=== PATIENT | male | born 1995 | race Caucasian/White ===

== ENCOUNTER 2016-06-14 16:07 | Emergency (ER) | payer OTHER ==
--- NOTE | 2016-06-14 16:47 | EDM.PDOC ---
[id number] POSSIBLE STREP THROAT Time Seen by Provider: 06/14/16 16:29 Source: Reports: Patient History Limitations: Reports: No limitations - History of Present Illness INITIAL COMMENTS - FREE TEXT/NARRATIVE: HISTORY AND PHYSICAL: History of present illness: [22-year-old male with no significant past medical history except idiopathic urticaria now complaining of mild hives typical for him. Spontaneous onset. Patient feels there is an association with strep throat and decides. When he first got the hives he had no throat symptoms but now he feels like his throat might be starting to hurt a little bit. No allergen exposures. No known allergies. Patient feels well otherwise. No voice changes stridor globus or wheezing. Review of systems: As per history of present illness and below otherwise all systems reviewed and negative. Past medical history: As per history of present illness and as reviewed below otherwise noncontributory. Surgical history: As per history of present illness and as reviewed below otherwise noncontributory. Social history: No reported history of drug or alcohol abuse. Family history: As per history of present illness and as reviewed below otherwise noncontributory. Physical exam: Well-appearing no acute distress stridor shortness of air, wheezing or tachypnea. Normal respiratory rate and pulse ox unremarkable. Well- appearing oropharynx. No anterior cervical adenopathy. Scattered mild urticaria. HEENT: Atraumatic, normocephalic, pupils reactive, negative for conjunctival pallor or scleral icterus, mucous membranes moist, throat clear, neck supple, nontender, trachea midline. Lungs: Clear to auscultation, breath sounds equal bilaterally, chest nontender. Heart: S1S2, regular, negative for clicks, rubs, or JVD. Abdomen: Soft, nondistended, nontender. Negative for masses or hepatosplenomegaly. Negative for costovertebral tenderness. Pelvis: Stable nontender. Genitourinary: Deferred. Rectal: Deferred. Extremities: Atraumatic, negative for cords or calf pain. Neurovascular unremarkable. Neuro: Awake, alert, oriented. Motor and sensory unremarkable throughout. Exam nonfocal. Diagnostics: [] Therapeutics: [] Impression: [] Plan: [Signs and symptoms consistent with idiopathic urticaria exacerbation. Discussed with patient we'll cover for less likely possibility of allergic urticaria. Signs of airway involvement. Patient stable. No further workup or treatment indicated. Patient agrees outpatient followup. Strict return precautions given Definitive disposition and diagnosis as appropriate pending reevaluation and review of above. - Related Data Allergies Allergy/AdvReac Type Severity Reaction Status Date / Time No Known Allergies Allergy Verified 06/14/16 16:23 Home Meds: Ambulatory Orders Medication Instructions Recorded Confirmed Prednisone [IMW: predniSONE] 40 mg PO WITHBREAKFAST #5 tab 06/14/16 Past Medical History - Past Health History Medical/Surgical History: Denies Medical/Surgical History Social & Family History - Family History Family Medical History: Noncontributory - Tobacco Use Smoking Status *Q: Current Every Day Smoker Years of Tobacco use: 6 Packs/Tins Daily: 0.5 - Recreational Drug Use Recreational Drug Use: No ED ROS GENERAL - Review of Systems Review Of Systems: See Below (Per history of present illness) ED EXAM, SKIN/RASH Exam: See Below (Per history of present illness) Course - Vital Signs Text/Narrative:: Signs and symptoms consistent with idiopathic urticaria with no respiratory involvement or apparent allergen triggers. Patient is well-appearing with unremarkable vital signs. There appears to be an anxiety contributory component to patients symptomatology of very mild sore throat. His throat is normal- appearing however he is concerned with possible evolving strep. Rapid strep pending. If negative will prescribe prednisone. Patient aware to use Benadryl and Pepcid as needed and followup with PCP. He severed aware to return immediately for evidence of airway involvement, new ,severe, or worsening symptoms Last Recorded V/S: Last Vital Signs Temp 37.0 C 06/14/16 16:23 Pulse 78 06/14/16 18:01 Resp 16 06/14/16 18:01 BP 122/70 06/14/16 18:01 Pulse Ox 98 06/14/16 18:01 Departure - Departure Time of Disposition: 17:27 Disposition: Home, Self-Care 01 Condition: good Clinical Impression: Idiopathic urticaria, Urticaria Prescriptions: Prednisone [IMW: predniSONE] 40 mg PO WITHBREAKFAST #5 tab Instructions: Hives, [id number] Referrals: Pilar Pereira [facility] [Primary Care Provider] - Forms: ED Department Discharge Additional Instructions: Your hives appear to be an episode of your chronic intermittent idiopathic urticaria. This means hives that come and go for no apparent reason. Finish prednisone as prescribed and take Benadryl and Pepcid as discussed needed. These are [id number] medications and they're both antihistamines. Follow up with your Dr. in one to 2 days and return immediately for any signs of airway involvement or severe symptoms.
[2016-06-14 18:10] VITALS: BP 122/70
== END 2016-06-14 18:01 | disposition home or self-care (01) ==
LOC: MW.ED 16:07
DX: L50.1 Idiopathic urticaria (principal); J02.9 Acute pharyngitis, unspecified; F17.210 Nicotine dependence, cigarettes, uncomplicated
CPT/HCPCS: 87081; 87880; 99282; 99283

== ENCOUNTER 2020-03-19 02:39 | Emergency (ER) | payer OTHER ==
[2020-03-19] MEDS ORDERED: Diphtheria,Pertussis(Acell),Tetanus Vaccine 0.5 ML Syringe IM ONE ×2 (03:05→04:35)
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
[2020-03-19 03:28] LABS: BLOOD UREA NITROGEN,BUN 9 mg/dL (7.0-18.0); CARBON DIOXIDE,CO2 22.3 mmol/L (21.0-32.0); CHLORIDE,CL 109 mmol/L (98-107); GLUCOSE RANDOM 103 mg/dL (74-106); POTASSIUM,K 4.2 mmol/L (3.5-5.1); SODIUM,NA 146 mmol/L (136-148)
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
[2020-03-19 04:57] VITALS: BP 121/86; PULSE 69
== END 2020-03-19 04:59 ==
LOC: MW.ED 02:39
DX: S70.312A Abrasion, left thigh, initial encounter (principal); S70.212A Abrasion, left hip, initial encounter; Z88.0 Allergy status to penicillin; V03.09XA Pedestrian with other conveyance injured in collision with car, pick-up truck or van in nontraffic accident, initial encounter
CPT/HCPCS: 36415; 73502-26-LT; 73502-LT; 80048; 80305-QW; 81003; 85025; 90471; 99282; 99284-25

== ENCOUNTER 2021-03-26 20:52 | Emergency (ER) | payer SELFPAY ==
[2021-03-26] MEDS ORDERED: Ondansetron 4 MG Tab.DIS PO ONE (21:04)
[2021-03-26] MEDS ORDERED: Ibuprofen 600 MG Tab PO ONE (21:04)
[2021-03-26] MEDS ORDERED: Acetaminophen 500 MG Tab PO ONE (21:04)
--- NOTE | 2021-03-26 21:07 | EDM.PDOC ---
ED HPI GENERAL MEDICAL PROBLEM - General Chief Complaint: General Stated Complaint: VOMITING THROAT HURTS Time Seen by Provider: 03/26/21 20:54 Source of Information: Reports: Patient History Limitations: Reports: No Limitations - History of Present Illness INITIAL COMMENTS - FREE TEXT/NARRATIVE: 26-year-old male no past medical history presents for Covid-like symptoms. Since last night patient notes sore throat, nausea without vomiting, body aches, nonproductive cough, headache worse with coughing. Head Pain Score (Numeric/FACES): 10 - Related Data Home Meds: Home Meds busPIRone [Buspar] 1 dose PO ASDIRECTED 03/19/20 [History] busPIRone [Buspar] 10 mg PO BID 30 Days #60 tablet 03/19/20 [Rx] Past Medical History - Past Health History Medical/Surgical History: Denies Medical/Surgical History Psychiatric History: Reports: Anxiety - Infectious Disease History Infectious Disease History: Reports: None Social & Family History - Family History Family Medical History: No Pertinent Family History ED ROS GENERAL - Review of Systems Review Of Systems: Comprehensive ROS is negative, except as noted in HPI. ED EXAM, GENERAL - Physical Exam Exam: See Below Exam Limited By: No Limitations General Appearance: Alert, WD/WN, No Apparent Distress Ears: Normal External Exam, Normal Canal, Hearing Grossly Normal, Normal TMs Ear Exam: Bilateral Ear: Auricle Normal, Canal Normal, TM normal Throat/Mouth: Normal Voice, No Airway Compromise Head: Atraumatic, Normocephalic Respiratory/Chest: No Respiratory Distress, Lungs Clear, Normal Breath Sounds, No Accessory Muscle Use Extremities: Normal Inspection Neurological: Alert, Normal Cognition, Normal Gait Psychiatric: Normal Affect, Normal Mood Skin Exam: Warm, Dry, Intact, Normal Color Course - Vital Signs Last Recorded V/S: Last Vital Signs Temp 98.9 F 03/26/21 20:57 Pulse 119 H 03/26/21 20:57 Resp 18 03/26/21 20:57 BP 138/75 03/26/21 20:57 Pulse Ox 97 03/26/21 20:57 - Orders/Labs/Meds Labs: Laboratory Tests 03/26/21 Range/Units 21:03 Influenza Type A RNA POSITIVE H (NEGATIVE) Influenza Type B RNA NEGATIVE (NEGATIVE) SARS-CoV-2 RNA (MARTIR) NEGATIVE (NEGATIVE) Meds: Medications Discontinued Medications Generic Name Dose Route Start Last Admin Trade Name Cedric PRN Reason Stop Dose Admin Acetaminophen 1,000 mg 03/26/21 21:04 03/26/21 21:23 Acetaminophen 500 Mg Tab PO 03/26/21 21:05 1,000 mg ONETIME ONE Administration Ibuprofen 600 mg 03/26/21 21:04 03/26/21 21:23 Ibuprofen 600 Mg Tab PO 03/26/21 21:05 600 mg ONETIME ONE Administration Ondansetron HCl 4 mg 03/26/21 21:04 03/26/21 21:23 Ondansetron 4 Mg Tab.Dis PO 03/26/21 21:05 4 mg ONETIME ONE Administration - Re-Assessments/Exams Free Text/Narrative Re-Assessment/Exam: 03/26/21 21:53 Patient is influenza A positive. Will discharge with PMD follow-up Departure - Departure Time of Disposition: :53 Disposition: Home, Self-Care 01 Condition: Good Clinical Impression: Influenza A - Discharge Information Instructions: Influenza, Adult Referrals: Reid Goins MD [Primary Care Provider] - Forms: ED Department Discharge Additional Instructions: Your influenza test is positive. Your medications were sent to [place] pharmacy The following information is given to patients seen in the emergency department who are being discharged to home. This information is to outline your options for follow-up care. We provide all patients seen in our emergency department with a follow-up referral. The need for follow-up, as well as the timing and circumstances, are variable depending upon the specifics of your emergency department visit. If you don't have a primary care physician on staff, we will provide you with a referral. We always advise you to contact your personal physician following an emergency department visit to inform them of the circumstance of the visit and for follow-up with them and/or the need for any referrals to a consulting specialist. The emergency department will also refer you to a specialist when appropriate. This referral assures that you have the opportunity for follow-up care with a specialist. All of these measure are taken in an effort to provide you with optimal care, which includes your follow-up. Under all circumstances we always encourage you to contact your private physician who remains a resource for coordinating your care. When calling for follow-up care, please make the office aware that this follow-up is from your recent emergency room visit. If for any reason you are refused follow-up, please contact the [facility] Emergency Department at and asked to speak to the emergency department charge nurse. Please follow up with your primary care physician. If you do not have a primary care physician, see below: [facility] [address] [place] [address] [id number] [facility] [address] [place] [id number] [facility] [address] [place] [id number] Sepsis Event Note (ED) - Evaluation Sepsis Screening Result: No Definite Risk - Focused Exam Vital Signs: Vital Signs Temp Pulse Resp BP Pulse Ox 03/26/21 20:57 98.9 F 119 H 18 138/75 97
[2021-03-26 21:46] LABS: CORONAVIRUS COVID-19 NAA NEGATIVE (NEGATIVE); INFLUENZA A NAA POSITIVE (NEGATIVE); INFLUENZA B NAA NEGATIVE (NEGATIVE)
[2021-03-26 22:04] VITALS: BP 128/73; PULSE 97
== END 2021-03-26 22:04 | disposition home or self-care (01) ==
LOC: MW.ED 20:52
DX: J10.1 Influenza due to other identified influenza virus with other respiratory manifestations (principal); Z20.822 Contact with and (suspected) exposure to COVID-19
CPT/HCPCS: 0240U; 99283; A9270

== ENCOUNTER 2021-09-27 13:59 | Emergency (ER) | payer SELFPAY ==
[2021-09-27] MEDS ORDERED: Sodium Chloride 0.9% 10 ML Syringe FLUSH PRN (14:02)
[2021-09-27] MEDS ORDERED: Sodium Chloride 0.9% 2.5 ML Syringe FLUSH PRN (14:02)
[2021-09-27] MEDS ORDERED: Sodium Chloride 0.9% 1,000 ML IV ONE (14:02)
[2021-09-27] MEDS ORDERED: Ondansetron 4 MG/2 ML SDV IVPUSH ONE (14:38)
[2021-09-27 15:03] LABS: BLOOD UREA NITROGEN,BUN 13 mg/dL (7.0-18.0); CHLORIDE,CL 105 mmol/L (98-107); GLUCOSE RANDOM 104 mg/dL (74-106); POTASSIUM,K 4.7 mmol/L (3.5-5.1); SODIUM,NA 140 mmol/L (136-148)
[2021-09-27 15:05] LABS: ESTIMATED GFR 106 mL/min (>60)
[2021-09-27 15:35] VITALS: BP 125/72; PULSE 67
== END 2021-09-27 15:34 | disposition home or self-care (01) ==
LOC: MW.ED 13:59
DX: F10.230 Alcohol dependence with withdrawal, uncomplicated (principal); Y90.0 Blood alcohol level of less than 20 mg/100 ml
CPT/HCPCS: 36415; 80053; 80307; 83735; 85025; 93005; 96361; 96374; 99285; J2405; J3490; J7030

== ENCOUNTER 2021-11-01 23:27 | Emergency (ER) | payer SELFPAY ==
[2021-11-02] MEDS ORDERED: Albuterol/Ipratropium 3.0-0.5 MG/3 ML Neb Soln NEB ONE (00:27)
[2021-11-02] MEDS ORDERED: predniSONE 10 MG Tab PO ONE (00:27)
[2021-11-02] MEDS ORDERED: Acetaminophen 325 MG Tab PO ONE (00:28)
[2021-11-02] MEDS ORDERED: Ibuprofen 600 MG Tab PO ONE (00:28)
[2021-11-02 01:06] LABS: CARBON DIOXIDE,CO2 26.9 mmol/L (21.0-32.0); POTASSIUM,K 3.8 mmol/L (3.5-5.1)
[2021-11-02 01:46] VITALS: BP 135/82; PULSE 90
== END 2021-11-02 01:40 | disposition home or self-care (01) ==
LOC: MW.ED 23:27
DX: J06.9 Acute upper respiratory infection, unspecified (principal); K92.1 Melena; Z20.822 Contact with and (suspected) exposure to COVID-19
CPT/HCPCS: 36415; 71046; 80053; 85025; 87635; 99285; A9270; 99284; J7620-GY; U0002

== ENCOUNTER 2022-04-10 20:07 | Emergency (ER) | payer SELFPAY ==
[2022-04-10] MEDS ORDERED: Lactated Ringers 1,000 ML IV ONE (22:49)
[2022-04-10] MEDS ORDERED: Ketorolac 30 MG/ML SDV IVPUSH ONE (22:52)
[2022-04-10 23:40] LABS: CARBON DIOXIDE,CO2 23.7 mmol/L (21.0-32.0); POTASSIUM,K 4.4 mmol/L (3.5-5.1)
[2022-04-11 01:15] LABS: CORONAVIRUS COVID-19 NAA NEGATIVE (NEGATIVE); INFLUENZA A NAA NEGATIVE (NEGATIVE); INFLUENZA B NAA NEGATIVE (NEGATIVE)
[2022-04-11 01:28] VITALS: BP 121/79; PULSE 88
== END 2022-04-11 01:34 | disposition home or self-care (01) ==
LOC: MW.ED 20:07
DX: R11.10 Vomiting, unspecified (principal); R19.7 Diarrhea, unspecified; E86.9 Volume depletion, unspecified; I10 Essential (primary) hypertension; F17.210 Nicotine dependence, cigarettes, uncomplicated; Z20.822 Contact with and (suspected) exposure to COVID-19
CPT/HCPCS: 0240U; 36415; 80053; 83690; 85025; 96361; 96374; 99284; J1885; J7120

== ENCOUNTER 2023-01-13 19:43 | Emergency (ER) | payer SELFPAY ==
[2023-01-13 21:02] LABS: BASOPHILS ABSOLUTE AUTO 0.04 K/uL (0.00-0.20); BASOPHILS PERCENT AUTO 0.4 % (0.0-1.0); EOSINOPHILS ABSOLUTE AUTO 0.18 K/uL (0.00-0.45); HEMATOCRIT 42.6 % (42.0-52.0); HEMOGLOBIN 15.4 g/dL (14.0-18.0); IMMATURE GRAN ABSOLUTE AUTO 0.03 K/uL (0.00-0.05); IMMATURE GRAN PERCENT AUTO 0.3 % (0.0-0.4); LYMPHOCYTES ABSOLUTE AUTO 1.28 K/uL (1.00-4.80); LYMPHOCYTES PERCENT AUTO 14.3 % (24.0-44.0); MEAN CORPUSCULAR HGB CONC 36.2 g/dL (32.0-36.0); MEAN CORPUSCULAR VOLUME 88.4 fL (83.0-99.0); MEAN PLATELET VOLUME 9.5 fL (9.4-12.4); MONOCYTES ABSOLUTE AUTO 0.45 K/uL (0.00-0.80); NEUTROPHILS ABSOLUTE AUTO 6.95 K/uL (1.80-7.70); PLATELET COUNT,PLT 196 K/uL (150-400); RED BLOOD CELL COUNT 4.82 M/uL (4.52-5.90); WHITE BLOOD CELL COUNT,WBC 8.93 K/uL (3.9-11.3)
[2023-01-13 21:24] LABS: A/G RATIO 1.2 (0.9-1.6); ALANINE AMINOTRANSFERASE,ALT 314 IU/L (14-63); ALBUMIN 4.2 g/dL (3.4-5.0); ALKALINE PHOSPHATASE 82 U/L (46-116); ASPARTATE AMNIOTRANSFERASE,AST 120 IU/L (15-37); BILIRUBIN TOTAL 0.9 mg/dL (0.2-1.0); BLOOD UREA NITROGEN,BUN 13 mg/dL (7.0-18.0); CALCIUM 9.9 mg/dL (8.5-10.1); CARBON DIOXIDE,CO2 24.7 mmol/L (21.0-32.0); CHLORIDE,CL 101 mmol/L (98-107); EST CRCL DRUG DOSING (CG) 117.13 mL/min; GLUCOSE RANDOM 91 mg/dL (74-106); LIPASE 25 U/L (16-77); POTASSIUM,K 4.2 mmol/L (3.5-5.1); PROTEIN TOTAL,TP 7.6 g/dL (6.4-8.2); SODIUM,NA 134 mmol/L (136-148)
[2023-01-13 21:25] LABS: ESTIMATED GFR 105 mL/min (>60)
[2023-01-13] MEDS ORDERED: Ketorolac 30 MG/ML SDV IVPUSH ONE (22:27)
[2023-01-13] MEDS ORDERED: Iopamidol 755 MG/ML 500 ML Multipack Bottle IVPUSH ONE (22:41)
[2023-01-14 01:45] VITALS: BP 145/95; PULSE 93
== END 2023-01-14 00:32 | disposition home or self-care (01) ==
LOC: MW.ED 19:43
DX: R79.89 Other specified abnormal findings of blood chemistry (principal); R19.7 Diarrhea, unspecified; I10 Essential (primary) hypertension
CPT/HCPCS: 36415; 74177; 80053; 83690; 84484; 85025; 93005; 96374; 99285; J1885; Q9967; 93010; 99284

== ENCOUNTER 2023-07-11 17:26 | Emergency (ER) | payer SELFPAY ==
[2023-07-11 18:10] VITALS: BP 126/85; PULSE 96
[2023-07-11] MEDS: Lidocaine 1% 5 ML VIAL INJECT ONE (18:50)
[2023-07-11] MEDS: Diphtheria,Pertussis(Acell),Tetanus Vaccine 0.5 ML Syringe IM ONE (18:50)
== END 2023-07-11 19:54 | disposition home or self-care (01) ==
LOC: MW.ED 17:26
DX: S61.012A Laceration without foreign body of left thumb without damage to nail, initial encounter (principal); I10 Essential (primary) hypertension; Z23 Encounter for immunization; W26.1XXA Contact with sword or dagger, initial encounter
CPT/HCPCS: 12001; 90471; 90715; 99282-25; 99283; J3490

== ENCOUNTER 2023-07-18 16:49 | Emergency (ER) | payer SELFPAY ==
[2023-07-18 17:16] VITALS: PULSE 84
== END 2023-07-18 17:38 | disposition home or self-care (01) ==
LOC: MW.ED 16:49
DX: T81.31XA Disruption of external operation (surgical) wound, not elsewhere classified, initial encounter (principal); I10 Essential (primary) hypertension
CPT/HCPCS: 99281

== ENCOUNTER 2023-10-14 21:56 | Emergency (ER) | payer SELFPAY ==
[2023-10-14 23:13] LABS: AMPHETAMINES SCREEN, URINE NEGATIVE (CUTOFF=500); BARBITURATE SCREEN,URINE NEGATIVE (CUTOFF=200); BENZODIAZEPINES SCREEN,URINE NEGATIVE (CUTOFF=150); BUPRENORPHINE SCREEN,URINE NEGATIVE (CUTOFF=10); METHADONE SCREEN, URINE NEGATIVE (CUTOFF=200); METHAMPHETAMINES SCREEN, URINE NEGATIVE (CUTOFF=500); OXYCODONE SCREEN,URINE NEGATIVE (CUT0FF=100); PCP SCREEN,URINE NEGATIVE (CUTOFF=25); THC SCREEN,URINE 20 NG/ML PRESUMPTIVE POSITIVE (CUTOFF=50)
[2023-10-14] MEDS: Nicotine 21 MG/24 Hr Patch TRDERM ONE (23:16)
[2023-10-14 23:20] LABS: BASOPHILS ABSOLUTE AUTO 0.05 K/uL (0.00-0.20); BASOPHILS PERCENT AUTO 0.7 % (0.0-1.0); EOSINOPHILS ABSOLUTE AUTO 0.24 K/uL (0.00-0.45); EOSINOPHILS PERCENT AUTO 3.2 % (0.0-6.0); HEMATOCRIT 45.2 % (42.0-52.0); HEMOGLOBIN 15.9 g/dL (14.0-18.0); IMMATURE GRAN ABSOLUTE AUTO 0.03 K/uL (0.00-0.05); IMMATURE GRAN PERCENT AUTO 0.4 % (0.0-0.4); LYMPHOCYTES ABSOLUTE AUTO 3.49 K/uL (1.00-4.80); MEAN CORPUSCULAR HEMOGLOBIN 31.1 pg (28.0-32.0); MEAN CORPUSCULAR HGB CONC 35.2 g/dL (32.0-36.0); MEAN CORPUSCULAR VOLUME 88.3 fL (83.0-99.0); MEAN PLATELET VOLUME 9.4 fL (9.4-12.4); MONOCYTES ABSOLUTE AUTO 0.41 K/uL (0.00-0.80); MONOCYTES PERCENT AUTO 5.5 % (0.0-8.0); NEUTROPHILS PERCENT AUTO 43.2 % (41.0-71.0); PLATELET COUNT,PLT 258 K/uL (150-400); RED BLOOD CELL COUNT 5.12 M/uL (4.52-5.90); WHITE BLOOD CELL COUNT,WBC 7.42 K/uL (3.9-11.3)
[2023-10-14 23:51] LABS: A/G RATIO 1.3 (0.9-1.6); ACETAMINOPHEN <2.0 ug/mL; ALANINE AMINOTRANSFERASE,ALT 106 IU/L (14-63); ALBUMIN 4.6 g/dL (3.4-5.0); ALKALINE PHOSPHATASE 69 U/L (46-116); ASPARTATE AMNIOTRANSFERASE,AST 45 IU/L (15-37); BILIRUBIN TOTAL 0.5 mg/dL (0.2-1.0); BLOOD UREA NITROGEN,BUN 6 mg/dL (7.0-18.0); CALCIUM 9.8 mg/dL (8.5-10.1); CARBON DIOXIDE,CO2 21.2 mmol/L (21.0-32.0); CHLORIDE,CL 105 mmol/L (98-107); ESTIMATED GFR 104 mL/min (>60); ETHANOL BLOOD MEDICAL 241 mg/dL; GLUCOSE RANDOM 107 mg/dL (74-106); POTASSIUM,K 4.2 mmol/L (3.5-5.1); PROTEIN TOTAL,TP 8.2 g/dL (6.4-8.2); SALICYLATE 2.6 mg/dL (0.0-20.0); SODIUM,NA 143 mmol/L (136-148)
[2023-10-15] MEDS: OLANZapine 10 MG in Water For Injection, Sterile 2.1 ML IM ONE (00:44)
[2023-10-15] MEDS: LORazepam 2 MG/ML SDV IM ONE (00:44)
[2023-10-15 03:12] LABS: TSH ULTRASENSITIVE 1.99 uIU/mL (0.36-3.74)
[2023-10-15 06:34] VITALS: BP 107/58; PULSE 77
== END 2023-10-15 08:00 ==
LOC: MW.ED 21:56
DX: R45.851 Suicidal ideations (principal); I10 Essential (primary) hypertension
CPT/HCPCS: 36415; 80053; 80143; 80179; 80305; 80307; 84443; 85025; 87635; 93005; 96372; 99285; A9270; J2060; J2405; 99284; J3490; U0002

== ENCOUNTER 2024-02-12 05:16 | Emergency (ER) | payer SELFPAY ==
[2024-02-12 06:04] LABS: BASOPHILS ABSOLUTE AUTO 0.06 K/uL (0.00-0.20); BASOPHILS PERCENT AUTO 0.8 % (0.0-1.0); EOSINOPHILS PERCENT AUTO 2.6 % (0.0-6.0); HEMATOCRIT 42.9 % (42.0-52.0); IMMATURE GRAN ABSOLUTE AUTO 0.06 K/uL (0.00-0.05); IMMATURE GRAN PERCENT AUTO 0.8 % (0.0-0.4); LYMPHOCYTES ABSOLUTE AUTO 3.22 K/uL (1.00-4.80); LYMPHOCYTES PERCENT AUTO 42.6 % (24.0-44.0); MEAN CORPUSCULAR VOLUME 88.6 fL (83.0-99.0); MEAN PLATELET VOLUME 9.3 fL (9.4-12.4); MONOCYTES ABSOLUTE AUTO 0.53 K/uL (0.00-0.80); NEUTROPHILS ABSOLUTE AUTO 3.49 K/uL (1.80-7.70); NEUTROPHILS PERCENT AUTO 46.2 % (41.0-71.0); PLATELET COUNT,PLT 246 K/uL (150-400); RED BLOOD CELL COUNT 4.84 M/uL (4.52-5.90); WHITE BLOOD CELL COUNT,WBC 7.56 K/uL (3.9-11.3)
[2024-02-12 07:00] LABS: A/G RATIO 1.2 (0.9-1.6); ACETAMINOPHEN <2.0 ug/mL; ALANINE AMINOTRANSFERASE,ALT 164 IU/L (14-63); ALKALINE PHOSPHATASE 79 U/L (46-116); ASPARTATE AMNIOTRANSFERASE,AST 64 IU/L (15-37); BILIRUBIN TOTAL 0.2 mg/dL (0.2-1.0); BLOOD UREA NITROGEN,BUN 12 mg/dL (7.0-18.0); CARBON DIOXIDE,CO2 23.5 mmol/L (21.0-32.0); CHLORIDE,CL 104 mmol/L (98-107); CREATININE 0.9 mg/dL (0.8-1.3); EST CRCL DRUG DOSING (CG) 128.99 mL/min; ETHANOL BLOOD MEDICAL 190 mg/dL; GLUCOSE RANDOM 125 mg/dL (74-106); MAGNESIUM 2.4 mg/dL (1.8-2.4); POTASSIUM,K 4.1 mmol/L (3.5-5.1); PROTEIN TOTAL,TP 7.4 g/dL (6.4-8.2); SALICYLATE 2.8 mg/dL (0.0-20.0); SODIUM,NA 141 mmol/L (136-148)
[2024-02-12 07:40] LABS: APPEARANCE,URINE CLEAR; BACTERIA,URINE FEW (NEGATIVE); BILIRUBIN,URINE NEGATIVE (NEGATIVE); COLOR,URINE YELLOW; EPITHELIAL CELLS,URINE RARE (NONE-FEW); GLUCOSE,URINE NEGATIVE (NEGATIVE); KETONES,URINE NEGATIVE (NEGATIVE); LEUKOCYTE ESTERASE,URINE NEGATIVE (NEGATIVE); MUCUS,URINE LIGHT (NONE-MOD); NITRITE,URINE NEGATIVE (NEGATIVE); OCCULT BLOOD,URINE NEGATIVE (NEGATIVE); PROTEIN,URINE NEGATIVE (NEGATIVE); RBC,URINE NONE SEEN (0-2/HPF); UROBILINOGEN,URINE 0.2 EU/dL (<2.0); WBC,URINE 0-1 (0-5/HPF)
[2024-02-12 07:42] LABS: AMPHETAMINES SCREEN, URINE NEGATIVE (CUTOFF=500); BARBITURATE SCREEN,URINE NEGATIVE (CUTOFF=200); BENZODIAZEPINES SCREEN,URINE NEGATIVE (CUTOFF=150); BUPRENORPHINE SCREEN,URINE NEGATIVE (CUTOFF=10); METHADONE SCREEN, URINE NEGATIVE (CUTOFF=200); METHAMPHETAMINES SCREEN, URINE NEGATIVE (CUTOFF=500); OXYCODONE SCREEN,URINE NEGATIVE (CUT0FF=100); PCP SCREEN,URINE NEGATIVE (CUTOFF=25); THC SCREEN,URINE 20 NG/ML NEGATIVE (CUTOFF=50)
[2024-02-12 07:43] LABS: ESTIMATED GFR 119 mL/min (>60)
[2024-02-12 08:26] VITALS: BP 117/77; PULSE 83
== END 2024-02-12 09:16 ==
LOC: MW.ED 05:16
DX: F32.A Depression, unspecified (principal); F41.9 Anxiety disorder, unspecified; G47.00 Insomnia, unspecified; I10 Essential (primary) hypertension; F17.210 Nicotine dependence, cigarettes, uncomplicated; Z79.899 Other long term (current) drug therapy
CPT/HCPCS: 36415; 80053; 80143; 80179; 80305-QW; 80307; 81001; 83735; 85025; 93005; 99285